=== PATIENT | male | born 1935 | race Caucasian/White ===

== ENCOUNTER 2022-05-08 22:53 | Inpatient (IN) | payer MEDICARE, OTHER ==
[~2022-05-08] VITALS: Ht 175.3 cm; Wt 73.0 kg
--- NOTE | 2022-05-08 23:03 | NUR ---
TO ER BED 4. [id number] FROM HOME PER PATIENT "HAS BEEN FALLING AND TRIPPING MORE OFTEN". PT AAOX3. AMBULATORY WITH WALKER. PT STATES "DOES NOT KNOW WHY HE IS HERE, HIS MUST HAVE CALLED 911". NO MEDICAL COMPLAINT FROM PT. BREATHING IS EVEN AND NONLABORED ON RA. CONNECTED TO MONITOR. AWAITING MD ARANA
--- NOTE | 2022-05-08 23:04 | NUR ---
[facility] [phone]
--- NOTE | 2022-05-08 23:13 | NUR ---
BLOOD COLLECTED AND SENT TO LAB
--- NOTE | 2022-05-08 23:14 | NUR ---
URINAL PROVIDED TO PT
--- NOTE | 2022-05-08 23:30 | NUR ---
URINE SAMPLE COLLECTED AND SENT TO LAB
[2022-05-08 23:39] LABS: BASOPHILS # (AUTO) 0.1 K/uL (0.0-0.2); BASOPHILS % (AUTO) 1.1 % (0.0-2.0); EOSINOPHILS % (AUTO) 6.2 % (0.0-6.0); HEMATOCRIT 34 % (39-51); HEMOGLOBIN 11.3 g/dL (13.5-17.5); LYMPHOCYTES # (AUTO) 1.3 K/uL (0.8-4.8); LYMPHOCYTES % (AUTO) 17.2 % (20.0-44.0); MEAN CORPUSCULAR HGB CONC 34 g/dl (31.0-36.0); MEAN CORPUSCULAR VOLUME 92 fL (80-96); MONOCYTES # (AUTO) 0.9 K/uL (0.1-1.30); MONOCYTES % (AUTO) 12.6 % (2.0-12.0); NEUTROPHILS # (AUTO) 4.6 K/uL (1.8-8.9); NEUTROPHILS % (AUTO) 62.9 % (43.0-81.0); PLATELET COUNT (AUTO) 162 K/uL (150-450); RED BLOOD CELL COUNT(AUTO) 3.64 MIL/uL (4.5-6.0); WHITE BLOOD COUNT (AUTO) 7.3 K/uL (4.3-11.0)
[2022-05-08 23:40] LABS: BILIRUBIN,URINE NEGATIVE (NEGATIVE); COLOR,URINE YELLOW (YELLOW); LEUKOCYTE ESTERASE ,URINE NEGATIVE (NEGATIVE); NITRITE, URINE NEGATIVE (NEGATIVE); PH,URINE 5.5 (5.0-8.0); PROTEIN,URINE NEGATIVE (NEGATIVE); UGLUCOSE NEGATIVE (NEGATIVE); UROBILINOGEN,URINE 0.2 EU/dL (0.2)
[2022-05-09 00:03] LABS: ALANINE AMINOTRANSFERASE 27 U/L (12-78); ALBUMIN 3.4 g/dL (3.4-5.0); ALKALINE PHOSPHATASE 77 U/L (46-116); ASPARTATE AMINOTRANSFERASE 23 U/L (15-37); BILIRUBIN,DIRECT 0.1 mg/dL (0.0-0.2); BILIRUBIN,TOTAL 0.2 mg/dL (0.2-1.0); CALCIUM, SERUM 9.3 mg/dL (8.5-10.1); CARBON DIOXIDE 26 mmol/L (21-32); CHLORIDE 106 mmol/L (98-107); CREATININE 1.9 mg/dL (0.6-1.3); GLUCOSE 101 mg/dL (74-106); POTASSIUM 4.3 mmol/L (3.5-5.1); SODIUM SERUM 139 mmol/L (136-145); TOTAL PROTEIN, SERUM 6.8 g/dL (6.4-8.2); UREA NITROGEN, BLOOD 39 mg/dL (7-18)
[2022-05-09 00:08] LABS: ALCOHOL, BLOOD < 3 mg/dL (0-0)
[2022-05-09] MEDS ORDERED: IV NS 0.9% 1,000 ML IV PRN (00:30)
[2022-05-09] MEDS ORDERED: Z GUARD REMEDY 4 OZ OINT TP PRN (01:00)
[2022-05-09] MEDS ORDERED: ACETAMINOPHEN 325 MG TABLET PO PRN (01:00)
[2022-05-09] MEDS ORDERED: MAG HYDROX/AL HYDROX/SIMETH 30 ML UDC PO PRN (01:00)
[2022-05-09] MEDS ORDERED: HYDROCODONE/APAP 5/325MG TABLET PO PRN (01:00)
[2022-05-09] MEDS ORDERED: ONDANSETRON HCL/PF 4 MG/2 ML VIAL IVP PRN (01:00)
[2022-05-09] MEDS ORDERED: MAGNESIUM HYDROXIDE 30 ML UDC PO PRN (01:00)
--- NOTE | 2022-05-09 01:05 | NUR ---
COVID ANTIGEN SWAB COLLECTED AND SENT TO LAB
--- NOTE | 2022-05-09 01:28 | NUR ---
MRSA SWAB COLLECTED AND SENT TO LAB. PATIENT'S BELONGINGS LIST DONE.
[2022-05-09] MEDS ORDERED: DIVA500T2 PO (02:45)
[2022-05-09] MEDS ORDERED: LEVO150T PO (02:45)
[2022-05-09] MEDS ORDERED: AMLO10TA4 PO (02:45)
[2022-05-09] MEDS ORDERED: FERR325T23 PO (02:45)
[2022-05-09] MEDS ORDERED: CRAN425C6 PO (02:45)
[2022-05-09] MEDS ORDERED: ATOR10TA PO (02:45)
[2022-05-09] MEDS ORDERED: DOCU-141 PO (02:45)
--- NOTE | 2022-05-09 02:58 | NUR ---
BED 308-3
--- NOTE | 2022-05-09 03:06 | NUR ---
REPORT GIVEN TO JACINTA CHEUNG FOR SOPHY
--- NOTE | 2022-05-09 03:59 | NUR ---
TRANSFERRED TO 308 IN STABLE CONDITION
[2022-05-09 04:00] VITALS: BP 125/64
--- NOTE | 2022-05-09 04:00 | NUR ---
RN ADMITTING NOTE PATIENT ADMITTED FROM ER FOR ACUTE WEAKNESS AND CHARLY. PATIENT IS ON RA, TOLERATING WELL. NO SOB NOTED. PATIENT IS A/O X 2 AT THIS TIME, HX OF DEMENTIA. PATIENT EXTREMELY FORGETFUL. PATIENT'S AT BEDSIDE. TOOK ALL BELONGINGS HOME. THEY WOULD LIKE TO RECEIVE PNEUMONIA VAX AT DC. R HAND 20 G PATENT AND INTACT. PATIENT'S SKIN ASSESSED AND SKIN ISSUES DOCUMENTED. ORIENTED PATIENT TO ROOM, RN, SECOND BAKER. SAFETY MEASURES IN PLACE: BED LOCKED AND IN LOWEST POSITION, CALL LIGHT WITHIN REACH, SIDE RAILS UP. BED ALARM ON. WILL MONITOR PATIENT CLOSELY.
[2022-05-09] MEDS: IV NS 0.9% 1,000 ML IV PRN ×2 (05:58→18:33)
--- NOTE | 2022-05-09 07:28 | NUR ---
RN CLOSING NOTE PATIENT NOT IN ANY APPARENT DISTRESS, A/O X 2. R HAND 20 G , NS AT 75 ONGOING. PATIENT STABLE ON RA, TOLERATING WELL. SAFETY MEASURES IMPLEMENTED. ALL NEEDS MET AND ATTENDED. ALL ORDERS CARRIED OUT. ENDORSED TO DAY SHIFT NURSE FOR SOPHY.
--- NOTE | 2022-05-09 07:53 | NUR ---
RN OPENING NOTES RECEIVED PATIENT I BED ASLEEP, EASILY AROUSED. NO SIGNS OF ACUTE DISTRESS NOTED. ON ROOM AIR, NO SOB NOTED, BREATHING EVEN AND UNLABORED. WITH IV ACCESS ON RIGHT HAND #20G, INTACT AND PATENT WITH NS @75ML/HR RUNNING. NO S/SX OF PAIN OR DISCOMFORT. SAFETY MEASURE IN PLACE. BED IN LOWEST AND LOCKED POSITION, BED ALARM ON, SIDE RAILS UP X2, CALL LIGHT PLACED WITHIN EASY REACH. WILL CONTINUE TO MONITOR PATIENT.
[2022-05-09 08:00] VITALS: BP 137/76
[2022-05-09] MEDS: PANTOPRAZOLE 40 MG TABLET.DR PO SCH (08:17)
[2022-05-09] MEDS ORDERED: METO25TA20 PO (10:22)
[2022-05-09] MEDS ORDERED: ESCI10TA PO (10:22)
[2022-05-09] MEDS ORDERED: MULT-447 PO (10:22)
[2022-05-09] MEDS ORDERED: LOSA50TA39 PO (10:22)
[2022-05-09] MEDS ORDERED: MEMA1CAP2 PO (10:22)
[2022-05-09] MEDS ORDERED: CHOL100043 PO (10:22)
[2022-05-09 13:17] LABS: CHOLESTEROL 213 mg/dL (<200); HDL CHOLESTEROL 37 mg/dL (40-60); LDL 139 mg/dL (0-99); TRIGLYCERIDES 164 mg/dL (30-150)
--- NOTE | 2022-05-09 14:59 | NUR ---
ORTHOSTATIC BP LYING: BP 128/64, HR 62 SITTING: BP 127/61, HR 65 STANDIN/77, HR 82
[2022-05-09 15:44] LABS: BILIRUBIN,URINE NEGATIVE (NEGATIVE); COLOR,URINE YELLOW (YELLOW); LEUKOCYTE ESTERASE ,URINE NEGATIVE (NEGATIVE); NITRITE, URINE NEGATIVE (NEGATIVE); PH,URINE 5.5 (5.0-8.0); PROTEIN,URINE NEGATIVE (NEGATIVE); UGLUCOSE NEGATIVE (NEGATIVE); UROBILINOGEN,URINE 0.2 EU/dL (0.2)
[2022-05-09 15:45] LABS: CREATININE, URINE 142.1 MG/DL (30.0-125.0)
[2022-05-09 17:19] LABS: EOSINOPHIL,URINE None Seen
--- NOTE | 2022-05-09 18:42 | NUR ---
RN CLOSING NOTES PATIENT IN BED, AWAKE, A/O X2, WITH FORGETFULNESS. AT BEDSIDE. REMAINS STABLE ON ROOM AIR, NO SOB NOTED. BREATHING EVEN AND UNLABORED. WITH IV ACCESS ON RIGHT HAND #20G, INTACT AND PATENT, WITH NS @ 75ML/HR INFUSING WELL. SAFETY MEASURE IN PLACE. BED IN LOWEST AND LOCKED POSITION, SIDE RAILS UP X2, CALL LIGHT PLACED WITHIN EASY REACH. WILL ENDORSE TO NEXT SHIFT FOR SOPHY.
--- NOTE | 2022-05-09 19:30 | NUR ---
ROLLER LEVELER OPENING NOTE RECEIVED PT AWAKE IN BED. A/O X2 WITH FORGETFULNESS. PT STABLE ON ROOM AIR. NO SOB OR S/S OF RESPIRATORY DISTRESS. BREATHING EVEN AND UNLABORED. ON EXTERNAL FILLING AND PACKING SUPERVISOR READING SR. IV ACCESS RIGHT HAND #20G, INTACT AND PATENT, RUNNING NS @ 75ML/HR. SAFETY PRECAUTIONS IN PLACE. BED IN LOWEST LOCKED POSITION, HOB ELEVATED, SIDE RAILS UP X3, BED ALARM ON, AND CALL LIGHT AND TABLE WITHIN REACH. ALL NEEDS MET AT THIS TIME.
[2022-05-09 20:00] VITALS: BP 147/67
[2022-05-09] MEDS: TEMAZEPAM 15 MG CAPSULE PO PRN (21:20)
--- NOTE | 2022-05-09 21:20 | NUR ---
RN NOTE PT COMPLAINED OF INSOMNIA AND ASKED FOR SLEEPING PILL. ADMINISTERED RESTORIL 15 MG FOR INSOMNIA ORDERED. MADE COMFORTABLE IN BED. ALL NEEDS MET AT THIS TIME.
[2022-05-10] VITALS: BP 145/76
[2022-05-10 05:00] VITALS: BP_SYST 135; BP_SYST 136; BP_DIAS 75; BP_DIAS 79
--- NOTE | 2022-05-10 06:39 | NUR ---
RN [employer] CLOSING NOTE PT AWAKE IN BED. A/O X2 WITH FORGETFULNESS. PT STABLE ON ROOM AIR. NO SOB OR S/S OF RESPIRATORY DISTRESS. BREATHING EVEN AND UNLABORED. ON EXTERNAL EMERGENCY ROOM TECH READING SR 64 BPM. IV ACCESS RIGHT HAND #20G, INTACT AND PATENT, RUNNING NS @ 75ML/HR. ALL DUE MEDS GIVEN ORDERED. SAFETY PRECAUTIONS IN PLACE AT ALL TIMES. BED IN LOWEST LOCKED POSITION, HOB ELEVATED, SIDE RAILS UP X3, BED ALARM ON, AND CALL LIGHT AND TABLE WITHIN REACH. ALL NEEDS MET AT THIS TIME AND WILL ENDORSE TO ONCOMING NURSE FOR SOPHY.
[2022-05-10 06:55] LABS: BASOPHILS # (AUTO) 0.1 K/uL (0.0-0.2); BASOPHILS % (AUTO) 1.3 % (0.0-2.0); EOSINOPHILS % (AUTO) 7.7 % (0.0-6.0); HEMATOCRIT 30 % (39-51); HEMOGLOBIN 10.2 g/dL (13.5-17.5); LYMPHOCYTES # (AUTO) 1.1 K/uL (0.8-4.8); LYMPHOCYTES % (AUTO) 18.5 % (20.0-44.0); MEAN CORPUSCULAR HGB CONC 34 g/dl (31.0-36.0); MEAN CORPUSCULAR VOLUME 91 fL (80-96); MONOCYTES # (AUTO) 0.6 K/uL (0.1-1.30); NEUTROPHILS # (AUTO) 3.6 K/uL (1.8-8.9); NEUTROPHILS % (AUTO) 61.5 % (43.0-81.0); PLATELET COUNT (AUTO) 133 K/uL (150-450); RED BLOOD CELL COUNT(AUTO) 3.28 MIL/uL (4.5-6.0); WHITE BLOOD COUNT (AUTO) 5.9 K/uL (4.3-11.0)
[2022-05-10 07:10] LABS: ALBUMIN 2.8 g/dL (3.4-5.0); BILIRUBIN,TOTAL 0.3 mg/dL (0.2-1.0); CALCIUM, SERUM 8.1 mg/dL (8.5-10.1); CREATININE 1.3 mg/dL (0.6-1.3); POTASSIUM 3.8 mmol/L (3.5-5.1); TOTAL PROTEIN, SERUM 5.8 g/dL (6.4-8.2)
[2022-05-10] MEDS: PANTOPRAZOLE 40 MG TABLET.DR PO SCH (07:37)
[2022-05-10] MEDS: METOPROLOL TARTRATE 25 MG TABLET PO SCH ×2 (09:04→16:37)
[2022-05-10] MEDS: MEMANTINE HCL 5 MG TABLET PO SCH (09:04)
[2022-05-10] MEDS: LOSARTAN POTASSIUM 50 MG TABLET PO SCH (09:04)
[2022-05-10] MEDS: MULTIVIT W/MINERALS 1 TAB TABLET PO SCH (09:04)
[2022-05-10] MEDS: IV NS 0.9% 1,000 ML IV PRN (09:57)
--- NOTE | 2022-05-10 10:05 | NUR ---
WOUND CARE CONSULT: PT PRESENTS WITH SACRAL DEEP TISSUE INJURY WHICH IS INTACT AND LEFT ELBOW SKIN TEAR, PRESENT ON ADMISSION. RECOMMENDATIONS MADE FOR SKIN PROTECTION. DISCUSSED WITH NURSING STAFF. PT IS INCONTINENT. MD IN AGREEMENT WITH PLAN OF CARE.
--- NOTE | 2022-05-10 10:42 | NUR ---
JONATAN PASCAL CATHETER 16F INSERTED. Addendum: 05/10/22 at 1044 by MIKE ROSS RN WRONG PT
--- NOTE | 2022-05-10 18:31 | NUR ---
RN NOTE PT COMPLAINING OF MODERATE TO SEVERE BACK PAIN 05/20. NORCO ADMINISTERED.
--- NOTE | 2022-05-10 19:56 | NUR ---
MS/TELE/RN PATIENT IS IN BED AWAKE, ORIENTED TO PERSON, CONFUSED, NO SIGNS OF DISTRESS, PATIENT IS TRYING TO GET OUT OF BED AND DOES NOT FOLLOW INSTRUCTIONS NOT TO GET OUT OF BED HE IS WEAK WITH UNSTEADY GAIT AND HIGH RISK TO FALL. PER PATIENT " I NEED TO GET UP BECAUSE I WILL MEET SOMEBODY AND HE IS ALREADY OUTSIDE". FURTHERMORE, PATIENT IS ALSO TRYING TO PULL OUT HIS IV, PER NURSING REPORT, HE ALREADY PULLED OUT HIS IV THREE TIMES. OBTAINED AN ORDER FOR BILATERAL SOFT WRIST RESTRAINTS FOR SAFETY . WILL MONITOR PER POLICY.
[2022-05-10 20:00] VITALS: BP 137/73
[2022-05-10] MEDS: TEMAZEPAM 15 MG CAPSULE PO PRN (21:33)
[2022-05-10] MEDS: DONEPEZIL 5 MG TABLET PO SCH (21:33)
[2022-05-10] MEDS ORDERED: Medication Not On Formulary EA (Memantine HCl/Donepezil HCl (Namzaric 14 mg-10 mg Capsul PO SCH (22:00)
[2022-05-11] VITALS: BP 142/72
--- NOTE | 2022-05-11 00:44 | NUR ---
MS/TELE/RN SPOKE TO A DAUGHTER ASKING FOR UPDATES OF HIS FATHER, GAVE UPDATES ON NURSING CARE OF THE PATIENT, INFORMED DAUGHTER THAT THE PATIENT IS CONFUSED PER MY ASSESSMENT, THAT THE PATIENT IS HIGH FALL RISK AND WAS TRYING TO GET OUT OF BED, THAT HE IS ON RESTRAINT FOR SAFETY. RECOMMENDED THE DAUGHTER TO CALL THE DOCTOR FOR ALL MEDICAL QUESTIONS. TELEPHONE NUMBER PROVIDED.
[2022-05-11 04:00] VITALS: BP 145/69
[2022-05-11] MEDS: IV NS 0.9% 1,000 ML IV PRN (04:33)
--- NOTE | 2022-05-11 06:16 | NUR ---
MS/TELE/RN PATIENT APPEARS SLEEPING AT THIS TIME, APPEARS COMFORTABLE, NO SIGNS OF DISTRESS NOTED, CALL LIGHT IN REACH, ALL NEEDS ATTENDED AT THIS TIME, WILL CONTINUE TO MONITOR.
[2022-05-11 06:21] LABS: BASOPHILS # (AUTO) 0.1 K/uL (0.0-0.2); BASOPHILS % (AUTO) 1.3 % (0.0-2.0); EOSINOPHILS % (AUTO) 6.5 % (0.0-6.0); HEMATOCRIT 34 % (39-51); HEMOGLOBIN 11.8 g/dL (13.5-17.5); LYMPHOCYTES % (AUTO) 17.6 % (20.0-44.0); MEAN CORPUSCULAR HGB CONC 35 g/dl (31.0-36.0); MEAN CORPUSCULAR VOLUME 90 fL (80-96); MONOCYTES # (AUTO) 0.6 K/uL (0.1-1.30); MONOCYTES % (AUTO) 11.4 % (2.0-12.0); NEUTROPHILS # (AUTO) 3.5 K/uL (1.8-8.9); NEUTROPHILS % (AUTO) 63.2 % (43.0-81.0); PLATELET COUNT (AUTO) 160 K/uL (150-450); RED BLOOD CELL COUNT(AUTO) 3.79 MIL/uL (4.5-6.0); WHITE BLOOD COUNT (AUTO) 5.6 K/uL (4.3-11.0)
[2022-05-11 07:39] LABS: BILIRUBIN,TOTAL 0.5 mg/dL (0.2-1.0); CALCIUM, SERUM 8.4 mg/dL (8.5-10.1); CREATININE 1.2 mg/dL (0.6-1.3); MAGNESIUM 2.1 mg/dL (1.8-2.4); PHOSPHORUS 2.6 mg/dL (2.5-4.9); POTASSIUM 3.7 mmol/L (3.5-5.1); TOTAL PROTEIN, SERUM 6.2 g/dL (6.4-8.2)
--- NOTE | 2022-05-11 07:39 | NUR ---
RN OPENING NOTE PT AWAKE IN BED. A/O X2 WITH SOME CONFUSION NOTED,. PT STABLE ON ROOM AIR. NO SOB OR S/S OF RESPIRATORY DISTRESS. BREATHING EVEN AND NON-LABORED. ON EXTERNAL CHAIR MENDER READING SR. IV ACCESS RIGHT HAND #20G, INTACT AND PATENT, RUNNING NS @ 75ML/HR. SAFETY PRECAUTIONS IN PLACE. BED IN LOWEST LOCKED POSITION, HOB ELEVATED, SIDE RAILS UP X3, BED ALARM ON, AND CALL LIGHT AND TABLE WITHIN REACH. ALL NEEDS MET AT THIS TIME. MONITOR / ASSIST
[2022-05-11] MEDS: PANTOPRAZOLE 40 MG TABLET.DR PO SCH (07:58)
[2022-05-11] MEDS: LOSARTAN POTASSIUM 50 MG TABLET PO SCH (08:44)
[2022-05-11] MEDS: MEMANTINE HCL 5 MG TABLET PO SCH (08:44)
[2022-05-11] MEDS: METOPROLOL TARTRATE 25 MG TABLET PO SCH ×2 (08:44→16:09)
[2022-05-11] MEDS: MULTIVIT W/MINERALS 1 TAB TABLET PO SCH (08:45)
--- NOTE | 2022-05-11 11:00 | NUR ---
RN NOTE- SPOKE W RICARDA DAUGHTER [phone]. UPDATED ON FATHER
--- NOTE | 2022-05-11 18:33 | NUR ---
RN CLOSING NOTE- PT AWAKE IN BED. A/O X2 WITH SOME CONFUSION NOTED,. PT STABLE ON ROOM AIR. NO SOB OR S/S OF RESPIRATORY DISTRESS. BREATHING EVEN AND NON-LABORED. ON EXTERNAL DENTAL TECH READING SR. IV ACCESS RIGHT HAND #20G, INTACT AND PATENT, RUNNING NS @ 75ML/HR. SAFETY PRECAUTIONS IN PLACE. BED IN LOWEST LOCKED POSITION, HOB ELEVATED, SIDE RAILS UP X3, BED ALARM ON, AND CALL LIGHT AND TABLE WITHIN REACH. ALL NEEDS MET AT THIS TIME. MONITOR / ASSIST
--- NOTE | 2022-05-11 19:13 | NUR ---
RN OPENING NOTES PT AWAKE IN BED. A/O X2 WITH SOME CONFUSION NOTED, PT NOTED WITH BILATERAL SOFT WRIST RESTRAINTS WILL REMOVE Q2HRS AND ANTICIPATED ALL NEEDS. PT STABLE ON ROOM AIR. NO SOB OR S/S OF RESPIRATORY DISTRESS. BREATHING EVEN AND NON-LABORED.IV ACCESS RFA #20G, INTACT AND PATENT, RUNNING NS @ 75ML/HR. SAFETY PRECAUTIONS IN PLACE. BED IN LOWEST LOCKED POSITION, HOB ELEVATED, SIDE RAILS UP X3, BED ALARM ON, AND CALL LIGHT AND TABLE WITHIN REACH. ALL NEEDS MET AT THIS TIME. WILL CONTINUE TO MONITOR.
[2022-05-11 20:44] VITALS: BP 126/75
[2022-05-11] MEDS: DONEPEZIL 5 MG TABLET PO SCH (22:20)
[2022-05-12] MEDS: TEMAZEPAM 15 MG CAPSULE PO PRN (00:58)
--- NOTE | 2022-05-12 01:01 | NUR ---
ms rn notES prn sleeping pill given pt very restless
--- NOTE | 2022-05-12 06:31 | NUR ---
MS RN NOTES PT SLEEP WELL THROUGHOUT THE NIGHT. PT IS STILL VERY FORGETFUL AND CONFUSED NEEDS FREQUENT REORIENTATION. PT IN NO PAIN OR DISTRESS AT THIS TIMES. KEPT CLEAN AND DRY AT ALL TIMES. IV ACCESS TO THE RIGHT FOREARM 20 G RUNNING NS @ 75ML/HR TOLERATING WELL. PT WITH BILATERAL RESTRAINTS FOR SAFETY. CIRCULATION CHECKED Q2HRS. ALL NEEDS MET AND ANTICIPATED. WILL ENDORSE CARE TO DAY SHIFT NURSE.
--- NOTE | 2022-05-12 07:56 | NUR ---
RN open note Patient isin bed , alert , oriented times 0 , confused , patient has Both wrist soft restrain due to pulling out the IV line . Patient is on room air , breathing un labored no sighs of distress, urinary and bowel incontinent,has redness on his sacral area , L elbow skin tear ,patient is on regular diet , has RFA IV access 20 g with NS running at 75 ml in hr . Bed is at the lowest position , bed side rails are up , call light within reach .
[2022-05-12 08:00] VITALS: BP 123/62
[2022-05-12] MEDS: METOPROLOL TARTRATE 25 MG TABLET PO SCH (09:05)
[2022-05-12 09:06] VITALS: BP 135/65
[2022-05-12] MEDS: LOSARTAN POTASSIUM 50 MG TABLET PO SCH (09:06)
[2022-05-12] MEDS: MEMANTINE HCL 5 MG TABLET PO SCH (09:06)
[2022-05-12] MEDS: MULTIVIT W/MINERALS 1 TAB TABLET PO SCH (09:06)
[2022-05-12] MEDS: PANTOPRAZOLE 40 MG TABLET.DR PO SCH (09:09)
[2022-05-12] MEDS ORDERED: PNEUMOCOCCAL 23-VAL P-SAC VAC 0.5 ML VIAL SQ ONE (13:00)
--- NOTE | 2022-05-12 15:13 | NUR ---
rn note Patient is at stable health condition , order to discharge patient to the SNF received. Peripheral IV line was removed . Discharge instructions were provided to the EMT and patient's spouse. Patient discharged from [facility]
== END 2022-05-12 15:21 | DRG 682 ==
LOC: ER 22:54 → MED 05-09 03:04 → TELE 05-10 00:06 → MED 05-11 09:59
PROVIDERS: ATTEND Internal Medicine
DX: N17.0 Acute kidney failure with tubular necrosis (principal); G93.41 Metabolic encephalopathy; E86.0 Dehydration; F03.90 Unspecified dementia, unspecified severity, without behavioral disturbance, psychotic disturbance, mood disturbance, and anxiety; R29.6 Repeated falls; Z20.822 Contact with and (suspected) exposure to COVID-19; J32.1 Chronic frontal sinusitis; D64.9 Anemia, unspecified; Z95.0 Presence of cardiac pacemaker; Z86.79 Personal history of other diseases of the circulatory system; W19.XXXA Unspecified fall, initial encounter; Y92.009 Unspecified place in unspecified non-institutional (private) residence as the place of occurrence of the external cause
CPT/HCPCS: 36415; 70450-TC; 71045-TC; 76770-TC; 80048-TC; 80053-TC; 80061-TC; 80076-TC; 82570-TC; 83735-TC; 84100-TC; 84155-TC; 84300-TC; 84443-TC; 84484-TC; 85025-TC; 87081-TC; 87086-TC; 90732; 93307-TC; 93880-TC; 97110-TC; 97116-TC; 97530-TC; C9803; G0378; G0480; J7030